=== PATIENT | female | born 1990 | race Hispanic/Latino ===

== ENCOUNTER → 2019-10-11 | Day surgery (SDC) | payer BC, OTHER ==
[2019-10-06 11:19] LABS: BASOPHILS % 0.6 % (0.0-1.0); EOSINOPHILS # (AUTO) 0.1 (0.0-0.4); EOSINOPHILS % 1.5 % (0.0-6.0); HEMATOCRIT 42.3 % (34.2-44.1); LYMPHOCYTES # (AUTO) 1.7 (1.0-3.2); LYMPHOCYTES % 24.2 % (18.0-39.1); MEAN CORPUSCULAR HEMOGLOBIN 28.6 pg (28-32); MEAN CORPUSCULAR HGB CONC 33.1 g/dL (31-35); MEAN CORPUSCULAR VOLUME 86.3 fL (81-99); MONOCYTES # (AUTO) 0.4 (0.2-0.8); MONOCYTES % 5.8 % (4.4-11.3); NEUTROPHILS # (AUTO) 4.9 (2.1-6.9); NEUTROPHILS % 67.6 % (38.7-80.0); PLATELET COUNT 272 x10e3/uL (140-360)
[~2019-10-11] MED LIST: ACETAMINOPHEN/CODEINE 300MG - 30MG TAB ONE; BUPIVACAINE 0.25%/EPI 30ML SDV INJ ONE; CEFAZOLIN SOD 1 GM VIAL ONE; KETOROLAC TROMETHAMINE 30 MG/ML VIAL ONE; LIDOCAINE HCL 2% LOCAL INJ 5 ML SDV VIAL INJ ONE; ONDANSETRON HCL INJ 2MG/ML 2ML 2 MG/ML VIAL ONE; PROPOFOL IV EMULSION 10 MG/ML 20 ML VIAL ONE; SEVOFLURANE INHAL SOLN 250 ML PEN BTL ONE
--- NOTE | 2019-10-11 10:07 | Operative Report ---
DATE OF PROCEDURE: SURGEON: Alice Chan MD PREOPERATIVE DIAGNOSIS: Cervical intraepithelial neoplasia 3. POSTOPERATIVE DIAGNOSIS: Cervical intraepithelial neoplasia 3. PROCEDURE PERFORMED: Cone biopsy. COMPLICATIONS: None. ESTIMATED BLOOD LOSS: Minimal. DESCRIPTION OF PROCEDURE: The patient was taken to the OR. General anesthesia was induced. She was prepped and draped in a normal sterile fashion, placed in dorsal lithotomy position. After examination under anesthesia, Lugol's iodine was placed on the cervix and Lugol's iodine negative areas were noted on the anterior lip. Two stay sutures of Vicryl 0 were placed at 3 and 9 o'clock. Marcaine with epi 0.25% was injected, 10 mL was injected around the cervix. Following this, a cold knife cone biopsy was performed uneventfully. The cone biopsy bed was cauterized with the ball Bovie and interrupted [id number] Vicryl 0 sutures were placed around the periphery of the cervix. Hemostasis was found to be adequate. Surgicel was placed in the cone biopsy bed and the stay sutures were tied together. The patient tolerated the procedure well. Lap, sponge, and instrument counts were correct x2 at the end of procedure. Alice Chan MD DD/LAUREL /[id number]
[2019-10-11 11:30] VITALS: BP 119/64
== END | disposition home or self-care (01) ==
LOC: OR 05:35
PROVIDERS: ATTEND Obstetrics & Gynecology
DX: D06.9 Carcinoma in situ of cervix, unspecified (principal); N72 Inflammatory disease of cervix uteri; Z01.812 Encounter for preprocedural laboratory examination; Z11.59 Encounter for screening for other viral diseases
CPT/HCPCS: 36415; 81025; 84702; 85025; 88307; J0690; J1885; J2001; J2405; U0002